=== PATIENT | female | born 1995 ===

== ENCOUNTER 2018-12-06 12:30 | Emergency (ER) | payer OTHER ==
[2018-12-06 12:30] VITALS: BMI 42.3
[2018-12-06 12:50] VITALS: RESP 16; O2SAT 99
[2018-12-06 13:49] LABS: BASO % 0.4 % (0.0-2.0); EOS # 0.2 K/uL (0.0-0.7); HEMOGLOBIN 12.6 g/dL (12.0-16.0); LYMPH # 2.6 K/uL (1.0-4.3); LYMPH % 28.6 % (20.0-40.0); MEAN CELL VOLUME 85.9 fl (81.0-99.0); MEAN CORPUSCULAR HEMOGLOBIN 28.7 pg (27.0-31.0); MEAN CORPUSCULAR HGB CONC 33.4 g/dL (33.0-37.0); MEAN PLATELET VOLUME 7.9 fl (7.2-11.7); MONO # 0.5 K/uL (0.0-0.8); MONO % 5.5 % (0.0-10.0); NEUT # 5.9 K/uL (1.8-7.0); NEUT % 63.5 % (50.0-75.0); NRBC % 0.1 % (0.0-0.0); RBC 4.4 Mil/uL (3.80-5.20); WHITE BLOOD COUNT 9.2 K/uL (4.8-10.8)
[2018-12-06 14:03] LABS: ALB/GLOB RATIO 1.3 (1.0-2.1); ALBUMIN 4.4 g/dL (3.5-5.0); ALT/SGPT 30 U/L (9-52); AST/SGOT 36 U/L (14-36); BLOOD UREA NITROGEN 11 mg/dl (7-17); CALCIUM 9.5 mg/dL (8.4-10.2); GFR NON-AFRICAN AMERICAN > 60
--- NOTE | 2018-12-06 14:08 | ED PDOC ---
HPI: Abdomen Time Seen by Provider: 12/06/18 13:08 Chief Complaint (Nursing): Abdominal Pain History Per: Patient Additional Complaint(s): Pt. states for the past week she's had L sided abdominal pain. Reports pain has no alleviating or exacerbating factors. Pain has been constant. Last BM was yesterday and was normal. Denies dysuria, hematuria, vaginal discharge, fever, N/V/D, previous abd surgery. Past Medical History Reviewed: Historical Data, Nursing Documentation, Vital Signs Vital Signs: Last Vital Signs Temp 98.7 F 12/06/18 12:47 Pulse 75 12/06/18 12:47 Resp 16 12/06/18 12:47 BP 105/64 12/06/18 12:47 Pulse Ox 99 12/06/18 12:47 - Medical History PMH: Gastritis Denies: Diabetes, Hepatitis, HIV, HTN, Chronic Kidney Disease, Seizures, Sexually Transmitted Disease - Family History Family History: States: No Known Family Hx - Immunization History Hx Tetanus Toxoid Vaccination: No Hx Influenza Vaccination: No Hx Pneumococcal Vaccination: No - Home Medications Home Medications: Ambulatory Orders Medication Instructions Recorded Naproxen [Naprosyn] 500 mg PO BID PRN #16 tab 12/17/17 Cefpodoxime [Vantin] 100 mg PO BID #14 tab 03/16/18 Naproxen [Naprosyn] 500 mg PO BID PRN #10 tab 12/06/18 - Allergies Allergies/Adverse Reactions: Allergies Allergy/AdvReac Type Severity Reaction Status Date / Time papaya Allergy RASH Verified 12/06/18 12:47 pineapple Allergy RASH Verified 12/06/18 12:47 shrimp Allergy RASH Verified 12/06/18 12:47 Review of Systems ROS Statement: Except As Marked, All Systems Reviewed And Found Negative Gastrointestinal: Positive for: Abdominal Pain Physical Exam - Physical Exam Appears: Positive for: Well, Non-toxic, No Acute Distress Skin: Positive for: Normal Color, Warm. Negative for: Rash Eye Exam: Positive for: Normal appearance Gastrointestinal/Abdominal: Positive for: Normal Exam, Bowel Sounds, Soft, Other (mild L sided pelvic tenderness). Negative for: Tenderness Back: Positive for: Normal Inspection. Negative for: L CVA Tenderness, R CVA Tenderness Neurologic/Psych: Positive for: Alert, Oriented (x3) - Laboratory Results Result Diagrams: 12/06/18 13:46 12/06/18 13:46 Lab Results: Total Bilirubin 0.2 mg/dl (0.2-1.3) 12/06/18 13:46 AST 36 U/L (14-36) D 12/06/18 13:46 ALT 30 U/L (9-52) 12/06/18 13:46 Alkaline Phosphatase 82 U/L (38-126) 12/06/18 13:46 Total Protein 7.8 G/DL (6.3-8.2) 12/06/18 13:46 Albumin 4.4 g/dL (3.5-5.0) 12/06/18 13:46 Globulin 3.4 gm/dL (2.2-3.9) 12/06/18 13:46 Albumin/Globulin Ratio 1.3 (1.0-2.1) 12/06/18 13:46 Urine POC: Negative Urine dip results: Positive for: Leukocyte Esterase (trace), Ketones (trace). Negative for: Blood, Nitrate, Glucose, Bilirubin, Protein - ECG O2 Sat by Pulse Oximetry: 99 - Progress ED Course And Treament: Labs, TVUS, toradol 30mg IVP ordered. 1730 US: Small left para ovarian cyst as above. On re-evaluation, pt. reports good relief of pain. Abd remains soft and non-tender. Informed of results and advised to f/u with OBGYN but is to return to ED immediately if symptoms worsen. Disposition - Clinical Impression Clinical Impression: Ovarian cyst - Patient ED Disposition Is Patient to be Admitted: No - Disposition [facility] [Outside] Disposition: Routine/Home Disposition Time: 17:33 Condition: IMPROVED Additional Instructions: FOLLOW UP WITH OBGYN FOR FURTHER EVALUATION RETURN TO ED IMMEDIATELY IF SYMPTOMS WORSEN [employer] [facility], thank you for letting us take care of you today. Your provider was Larissa Quijano MD and you were treated for ABD PAIN. The emergency medical care you received today was directed at your acute symptoms. If you were presc ribed any medication, please fill it and take as directed. It may take several days for your symptoms to resolve. Return to the Emergency Department if your symptoms worsen, do not improve, or if you have any other problems. Please contact your doctor or call one of the physicians/clinics you have been referred to that are listed on the Patient Visit Information form that is included in your discharge packet. Bring any paperwork you were given at discharge with you along with any medications you are taking to your follow up visit. Our treatment cannot replace ongoing medical care by a primary care provider outside of the emergency department. Thank you for allowing the [facility] team to be part of your care today. If you had an X-Ray or CT scan: A Radiologist will review the ED reading if any change in treatment is needed we will contact you. If you had a blood, urine, or wound culture: It will take several days for the results, if any change in treatment is needed we will contact you. If you had an STI test: It will take 48 hours for the results. Please call after 1 week if you have not heard back. Prescriptions: Naproxen [Naprosyn] 500 mg PO BID PRN #10 tab PRN Reason: Pain Instructions: Ovarian Cyst (DC) Forms: [employer] (Romanian) Print Language: DIVEHI
--- NOTE | 2018-12-06 17:28 | US ---
Date of service: 12/06/2018 HISTORY: Left-sided pelvic pain COMPARISON: None available. TECHNIQUE: Transvaginal sonographic evaluation of the pelvis performed. FINDINGS: UTERUS: Measures 7.1 x 3.8 x 4.6 cm. Normal in size and appearance. No fibroid or other mass lesion seen. ENDOMETRIUM: Measures 8.0 mm in diameter. Unremarkable. CERVIX: No cervical abnormality identified. RIGHT OVARY: Measures 2.6 x 2.4 x 1.7 cm. No solid mass. Normal flow. LEFT OVARY: Measures 0.5 x 2.0 x 2.0 cm. No solid mass. Normal flow. Small paraovarian cyst measuring 1.1 cm in greatest dimension FREE FLUID: No significant free fluid noted. OTHER FINDINGS: None. IMPRESSION: . Small left para ovarian cyst as above.
[2018-12-06 17:58] VITALS: BP 110/68; PULSE 71; TEMP 98.2
== END 2018-12-06 17:59 | disposition home or self-care (01) ==
LOC: H.ER 12:30
DX: N83.202 Unspecified ovarian cyst, left side (principal); B96.20 Unspecified Escherichia coli [E. coli] as the cause of diseases classified elsewhere
CPT/HCPCS: 76830; 80053; 81025; 85025; 87086; 96374; 99284; J1885